=== PATIENT | male | born 1990 | race Caucasian/White ===

== ENCOUNTER 2018-07-08 12:23 | Emergency (ER) | payer MEDICAID ==
[~2018-07-08] VITALS: Ht 175.3 cm; Wt 104.3 kg
[2018-07-08 12:27] VITALS: BP 89/40; Ht 175.3 cm; Wt 104.3 kg
== END 2018-07-08 14:33 | disposition home or self-care (01) ==
LOC: ED 12:23
DX: S62.320A Displaced fracture of shaft of second metacarpal bone, right hand, initial encounter for closed fracture (principal); Y04.0XXA Assault by unarmed brawl or fight, initial encounter; Y93.89 Activity, other specified; Y92.89 Other specified places as the place of occurrence of the external cause; Y99.8 Other external cause status
CPT/HCPCS: J1885